=== PATIENT | female | born 1965 | race Two or more races ===

== ENCOUNTER 2016-05-20 16:14 | Inpatient (IN) | payer MEDICAID, OTHER ==
[~2016-05-20] VITALS: Ht 165.1 cm; Wt 73.6 kg
[2016-05-20 17:28] LABS: Basophils # (auto) 0 uL; Basophils % (auto) 0.5 % (0.0-2.0); Eosinophils # (auto) 0.1 uL; Eosinophils % (auto) 2.1 % (0.0-7.0); Hematocrit 35.7 % (36.0-46.0); Hemoglobin 11.4 g/dL (12.2-16.2); Lymphocytes # (auto) 2.7 uL; Lymphocytes % (auto) 43.4 % (10.0-50.0); Mean Corpuscular Hgb Conc. 31.8 g/dL (32.0-36.0); Mean Corpuscular Volume 91.2 fL (80.0-100.0); Mean Platelet Volume 7.9 fL (7.4-10.4); Monocytes # (auto) 0.6 uL; Monocytes % (auto) 8.8 % (0.0-12.0); Neutrophils # (auto) 2.8 uL; Neutrophils % (auto) 45.2 % (37.0-80.0); Platelet Count (auto) 402 10^3/uL (140-450); Red Cell Distribution Width 15.5 % (11.6-16.0); White Blood Cell 6.3 10^3/uL (4.4-10.8)
[2016-05-20 17:58] LABS: Albumin 3.4 g/dL (3.4-5.0); BUN/Creatinine Ratio 10.9; Bilirubin, Total 0.2 mg/dL (0.2-1.0); Calcium 8.2 mg/dL (8.5-10.1); Magnesium 2.4 mg/dL (1.6-2.6); Potassium 3.8 mmol/L (3.5-5.1); Total Protein 6.7 g/dL (6.4-8.2)
[2016-05-21] MEDS ORDERED: MORPHINE SULFATE 4 MG/ML SYRG IV ONE ×2 (07:00→09:30)
[2016-05-21] MEDS ORDERED: SODIUM CHLORIDE 0.9% 500 ML IVB ONE (07:00)
[2016-05-21] MEDS ORDERED: PANTOPRAZOLE SODIUM 40 MG/10 ML VIAL IV STA (07:00)
[2016-05-21] MEDS ORDERED: ONDANSETRON HCL 4 MG/2 ML VIAL IV ONE (07:00)
[2016-05-21 08:11] LABS: Amylase 46 U/L (25-115)
[2016-05-21] MEDS ORDERED: MORPHINE SULF INJ 2 MG/ML SYRINGE 1ML IV PRN (10:15)
[2016-05-21] MEDS ORDERED: LORazepam 0.5 MG TAB PO PRN (10:15)
[2016-05-21] MEDS ORDERED: cefTRIAXone 1GM/50ML D5W 50 ML IV ONE (10:15)
[2016-05-21] MEDS ORDERED: NITROGLYCERIN 0.4 MG SL TAB SL PRN (10:15)
[2016-05-21] MEDS ORDERED: FAMOTIDINE (10MG/ML) 2ML VL IV SCH (10:15)
[2016-05-21] MEDS ORDERED: TEMAZEPAM 15 MG CAP PO PRN (10:15)
[2016-05-21] MEDS ORDERED: LORazepam 2MG/ML-1ML VIAL IV PRN (10:15)
[2016-05-21] MEDS ORDERED: ENOXAPARIN SOD 40 MG/0.4 ML SYRINGE SC ONE (10:45)
[2016-05-21] MEDS: SODIUM CHLORIDE 0.9% 1,000 ML IV SCH ×2 (10:58→20:39)
[2016-05-21] MEDS: metroNIDAZOLE 500MG/100ML 100 ML IV SCH ×3 (12:06→23:35)
[2016-05-21 13:00] VITALS: BP 97/53
[2016-05-21] MEDS ORDERED: PHENYTOIN SODIUM 100 MG CAP PO ONE (14:00)
[2016-05-21] MEDS: PHENYTOIN SODIUM 100 MG CAP PO SCH ×2 (14:00→21:44)
[2016-05-21] MEDS ORDERED: PHENYTOIN SODIUM 100 MG CAP PO SCH (14:00)
[2016-05-21 16:53] VITALS: BP 91/61
[2016-05-21] MEDS: MORPHINE SULF INJ 2 MG/ML SYRINGE 1ML IV PRN ×2 (17:41→21:44)
[2016-05-21] MEDS: PROMETHAZINE HCL 25 MG/ML 1ML IV PRN (21:44)
[2016-05-21] MEDS: PANTOPRAZOLE 40 MG TAB PO SCH (21:44)
[2016-05-21 21:45] VITALS: BP 105/66
[2016-05-22] MEDS: PROMETHAZINE HCL 25 MG/ML 1ML IV PRN ×5 (01:56→22:24)
[2016-05-22] MEDS: MORPHINE SULF INJ 2 MG/ML SYRINGE 1ML IV PRN ×6 (01:57→22:23)
[2016-05-22 02:51] LABS: Urine Bilirubin Negative (Negative); Urine Blood Negative /uL (Negative); Urine Color Yellow (Yellow); Urine Glucose Normal (Normal); Urine Ketone 1+ (Negative); Urine Mucus FEW (None Seen); Urine Nitrite Negative (Negative); Urine RBC 2 /hpf (0 - 4); Urine Squamous Epithelial Cell FEW /hpf (<5); Urine Urobilinogen Normal (Negative)
[2016-05-22 05:15] VITALS: BP 107/61
[2016-05-22] MEDS: PHENYTOIN SODIUM 100 MG CAP PO SCH ×3 (06:00→22:23)
[2016-05-22] MEDS: metroNIDAZOLE 500MG/100ML 100 ML IV SCH ×3 (06:00→18:11)
[2016-05-22] MEDS: SODIUM CHLORIDE 0.9% 1,000 ML IV SCH ×2 (06:10→16:25)
[2016-05-22 07:19] LABS: Basophils # (auto) 0 uL; Basophils % (auto) 0.5 % (0.0-2.0); Eosinophils # (auto) 0.1 uL; Hematocrit 30.2 % (36.0-46.0); Hemoglobin 9.8 g/dL (12.2-16.2); Lymphocytes # (auto) 2.8 uL; Mean Corpuscular Hemoglobin 29.5 pg (28.0-32.0); Mean Corpuscular Hgb Conc. 32.3 g/dL (32.0-36.0); Mean Corpuscular Volume 91.2 fL (80.0-100.0); Mean Platelet Volume 7.9 fL (7.4-10.4); Monocytes # (auto) 0.5 uL; Monocytes % (auto) 7.4 % (0.0-12.0); Neutrophils # (auto) 3.4 uL; Neutrophils % (auto) 50.1 % (37.0-80.0); Platelet Count (auto) 324 10^3/uL (140-450); White Blood Cell 6.9 10^3/uL (4.4-10.8)
[2016-05-22 07:41] LABS: Albumin 2.6 g/dL (3.4-5.0); BUN/Creatinine Ratio 13.7; Bilirubin, Total 0.2 mg/dL (0.2-1.0); Calcium 7.8 mg/dL (8.5-10.1); Potassium 3.5 mmol/L (3.5-5.1); Total Protein 5.3 g/dL (6.4-8.2)
[2016-05-22 08:00] VITALS: BP 90/61
[2016-05-22] MEDS: cefTRIAXone 1GM/50ML D5W 50 ML IV SCH (09:23)
[2016-05-22 10:05] LABS: Temperature: 22.5 C (20.0-25.0)
[2016-05-22] MEDS: PANTOPRAZOLE 40 MG TAB PO SCH (10:17)
[2016-05-22] MEDS: ENOXAPARIN SOD 40 MG/0.4 ML SYRINGE SC SCH (10:18)
[2016-05-22] MEDS ORDERED: PHEN100C70 PO (11:29)
[2016-05-22] MEDS ORDERED: LITH300C3 PO (11:29)
[2016-05-22 17:00] VITALS: BP 134/73
[2016-05-22 21:30] VITALS: BP 119/65
[2016-05-22] MEDS: PANTOPRAZOLE SODIUM 40 MG/10 ML VIAL IV SCH (22:22)
[2016-05-23] MEDS: metroNIDAZOLE 500MG/100ML 100 ML IV SCH ×5 (00:37→23:36)
[2016-05-23] MEDS: SODIUM CHLORIDE 0.9% 1,000 ML IV SCH ×3 (02:45→21:49)
[2016-05-23] MEDS: MORPHINE SULF INJ 2 MG/ML SYRINGE 1ML IV PRN ×5 (03:03→21:50)
[2016-05-23] MEDS: PROMETHAZINE HCL 25 MG/ML 1ML IV PRN ×3 (03:04→21:50)
[2016-05-23 05:21] VITALS: BP 116/72
[2016-05-23] MEDS: PHENYTOIN SODIUM 100 MG CAP PO SCH ×3 (06:10→21:49)
[2016-05-23 07:51] VITALS: BP 131/85
[2016-05-23 08:43] LABS: Potassium 4.2 mmol/L (3.5-5.1)
[2016-05-23 08:52] LABS: BUN/Creatinine Ratio 13.2; Calcium 8.2 mg/dL (8.5-10.1)
[2016-05-23 08:54] LABS: Bilirubin, Total 0.3 mg/dL (0.2-1.0); Total Protein 6.3 g/dL (6.4-8.2)
[2016-05-23] MEDS: cefTRIAXone 1GM/50ML D5W 50 ML IV SCH (09:00)
[2016-05-23] MEDS ORDERED: GASTROGRAFIN 120 ML SOL ONE (09:21)
[2016-05-23] MEDS: ENOXAPARIN SOD 40 MG/0.4 ML SYRINGE SC SCH (10:33)
[2016-05-23] MEDS: PANTOPRAZOLE SODIUM 40 MG/10 ML VIAL IV SCH ×2 (10:33→21:49)
[2016-05-23] MEDS ORDERED: THIAMINE HCL 100 MG/ML 2ML VIAL IV ONE (10:45)
[2016-05-23 11:59] VITALS: BP 125/74
[2016-05-23] MEDS ORDERED: FLEET MINERAL OIL ENEMA 133 ML PR SCH (12:00)
[2016-05-23] MEDS ORDERED: FLEET MINERAL OIL ENEMA 133 ML PR ONE (12:00)
[2016-05-23] MEDS: SUCRALFATE 1 GM/10 ML ORAL SUSP GT SCH ×3 (12:17→21:48)
[2016-05-23] MEDS: CYANOCOBALAMIN 500 MCG TAB PO SCH (12:20)
[2016-05-23 13:09] LABS: Basophils # (auto) 0.1 uL; Basophils % (auto) 0.8 % (0.0-2.0); Eosinophils # (auto) 0.2 uL; Eosinophils % (auto) 2.2 % (0.0-7.0); Hematocrit 41.8 % (36.0-46.0); Hemoglobin 13.3 g/dL (12.2-16.2); Lymphocytes # (auto) 3.1 uL; Lymphocytes % (auto) 33.9 % (10.0-50.0); Mean Corpuscular Hemoglobin 29.4 pg (28.0-32.0); Mean Corpuscular Hgb Conc. 31.9 g/dL (32.0-36.0); Mean Corpuscular Volume 92.1 fL (80.0-100.0); Mean Platelet Volume 7.9 fL (7.4-10.4); Monocytes # (auto) 0.6 uL; Monocytes % (auto) 6.7 % (0.0-12.0); Neutrophils # (auto) 5.2 uL; Neutrophils % (auto) 56.4 % (37.0-80.0); Platelet Count (auto) 402 10^3/uL (140-450); Red Cell Distribution Width 15.1 % (11.6-16.0); White Blood Cell 9.2 10^3/uL (4.4-10.8)
[2016-05-23] MEDS ORDERED: ALEN35TA18 PO (14:54)
[2016-05-23] MEDS ORDERED: PHE100C PO (14:54)
[2016-05-23] MEDS ORDERED: CLON0.5T PO (14:54)
[2016-05-23] MEDS ORDERED: LEVO112T4 PO (14:54)
[2016-05-23] MEDS ORDERED: CHOL50007 PO (14:54)
[2016-05-23] MEDS ORDERED: CLOP75TA28 PO (14:54)
[2016-05-23] MEDS ORDERED: TAMO20TA5 PO (14:54)
[2016-05-23] MEDS ORDERED: ESCI20TA PO (14:54)
[2016-05-23] MEDS ORDERED: OMEP20CA5 PO (14:54)
[2016-05-23] MEDS ORDERED: OXCA150T61 PO (14:54)
[2016-05-23] MEDS ORDERED: DOCU-94 PO (14:54)
[2016-05-23] MEDS ORDERED: PRO20T PO (14:54)
[2016-05-23] MEDS ORDERED: LORA-622 PO (14:54)
[2016-05-23] MEDS ORDERED: CALC200S4 (14:54)
[2016-05-23 16:57] VITALS: BP 141/62
[2016-05-23 21:57] VITALS: BP 116/81
[2016-05-24] MEDS: MORPHINE SULF INJ 2 MG/ML SYRINGE 1ML IV PRN ×5 (02:46→20:52)
[2016-05-24] MEDS: PROMETHAZINE HCL 25 MG/ML 1ML IV PRN ×5 (02:47→20:52)
[2016-05-24 05:14] VITALS: BP 119/80
[2016-05-24] MEDS: metroNIDAZOLE 500MG/100ML 100 ML IV SCH (05:36)
[2016-05-24] MEDS: PHENYTOIN SODIUM 100 MG CAP PO SCH ×3 (05:37→21:44)
[2016-05-24] MEDS: SUCRALFATE 1 GM/10 ML ORAL SUSP GT SCH ×4 (06:47→21:44)
[2016-05-24] MEDS: SODIUM CHLORIDE 0.9% 1,000 ML IV SCH (08:44)
[2016-05-24] MEDS: cefTRIAXone 1GM/50ML D5W 50 ML IV SCH (08:44)
[2016-05-24 09:00] VITALS: BP 100/68
[2016-05-24] MEDS: PANTOPRAZOLE SODIUM 40 MG/10 ML VIAL IV SCH ×2 (09:51→21:44)
[2016-05-24] MEDS: THIAMINE HCL 100 MG TAB PO SCH (09:51)
[2016-05-24] MEDS: ENOXAPARIN SOD 40 MG/0.4 ML SYRINGE SC SCH (09:51)
[2016-05-24] MEDS: CYANOCOBALAMIN 500 MCG TAB PO SCH (09:51)
[2016-05-24 13:00] VITALS: BP 115/69
[2016-05-24 17:00] VITALS: BP 138/95
[2016-05-24 22:00] VITALS: BP 131/84
[2016-05-25] MEDS: PROMETHAZINE HCL 25 MG/ML 1ML IV PRN ×3 (01:25→12:13)
[2016-05-25] MEDS: MORPHINE SULF INJ 2 MG/ML SYRINGE 1ML IV PRN ×3 (01:25→12:12)
[2016-05-25 05:00] VITALS: BP 126/70
[2016-05-25 05:58] LABS: INR 1.05 (0.9-1.15); Partial Thromboplastin Time 24.2 sec (22.64-33.71); Prothrombin Time 10.8 sec (9.37-12.3)
[2016-05-25] MEDS: PHENYTOIN SODIUM 100 MG CAP PO SCH ×2 (06:02→14:22)
[2016-05-25] MEDS: SUCRALFATE 1 GM/10 ML ORAL SUSP GT SCH ×2 (07:00→12:12)
[2016-05-25] MEDS ORDERED: diphenhdrAMINE HCL 50 MG/1 ML VL ONE (08:14)
[2016-05-25] MEDS ORDERED: SODIUM CHLORIDE LOCK 10 ML ONE (08:14)
[2016-05-25] MEDS ORDERED: LIDOCAINE VISCOUS 2% 15ML UD ONE (08:14)
[2016-05-25 08:34] VITALS: BP 104/56
[2016-05-25] MEDS: MIDAZOLAM HCL 5 MG/ML-1ML VIAL ONE ×2 (11:17→11:20)
[2016-05-25] MEDS: fentaNYL CITRATE 100 MCG/2 ML VL ONE ×2 (11:17→11:20)
[2016-05-25] MEDS: ENOXAPARIN SOD 40 MG/0.4 ML SYRINGE SC SCH (12:12)
[2016-05-25] MEDS: CYANOCOBALAMIN 500 MCG TAB PO SCH (12:12)
[2016-05-25] MEDS: THIAMINE HCL 100 MG TAB PO SCH (12:12)
[2016-05-25 14:11] VITALS: BP 108/61
[2016-05-25] MEDS ORDERED: PANTOPRAZOLE 40 MG TAB PO SCH (22:00)
== END 2016-05-25 15:00 | disposition home or self-care (01) | DRG 241 ==
LOC: ER 16:27 → TELE 16:28 → TELE-WESTW 05-21 13:22 → WEST WING 05-22 23:51
PROVIDERS: ADMIT Internal Medicine; ATTEND Hospitalist
PROC: 0DB68ZX Excision of Stomach, Via Natural or Artificial Opening Endoscopic, Diagnostic (ICD-10-PCS; principal; 2016-05-25 11:15)
DX: K29.00 Acute gastritis without bleeding (principal); G93.41 Metabolic encephalopathy; S22.089A Unspecified fracture of T11-T12 vertebra, initial encounter for closed fracture; G40.909 Epilepsy, unspecified, not intractable, without status epilepticus; F17.210 Nicotine dependence, cigarettes, uncomplicated; F31.9 Bipolar disorder, unspecified; I10 Essential (primary) hypertension; Z86.73 Personal history of transient ischemic attack (TIA), and cerebral infarction without residual deficits; F41.8 Other specified anxiety disorders; Z88.6 Allergy status to analgesic agent; Z88.5 Allergy status to narcotic agent; Z88.0 Allergy status to penicillin; Z90.89 Acquired absence of other organs; Z90.49 Acquired absence of other specified parts of digestive tract; Z90.710 Acquired absence of both cervix and uterus; Z90.81 Acquired absence of spleen; K83.8 Other specified diseases of biliary tract; N63 Unspecified lump in breast; X58.XXXA Exposure to other specified factors, initial encounter; Y93.89 Activity, other specified; Y92.89 Other specified places as the place of occurrence of the external cause; Y99.8 Other external cause status; K56.41 Fecal impaction; G89.4 Chronic pain syndrome
CPT/HCPCS: 36415; 43239; 70450; 71010; 71250; 74020; 74176; 80053; 80185; 81001; 82150; 82270; 82378; 82607; 82746; 83690; 83735; 84439; 84443; 84484; 85025; 85610; 85652; 85730; 86141; 93005; 95819; 96361; 96365; 96372; 96375; 97001; C9113; G0434; J0696; J2250; J2405; J3490